=== PATIENT | female | born 1935 | race Caucasian/White ===

== ENCOUNTER → 2018-11-25 | Outpatient (CLI) | payer MEDICARE ==
[~2018-11-25] MED LIST: CYCLOBENZAPRINE10 MG PO; NORCO 5-325 TA1 EACH PO; PREDNISONE20 M1 PO; SIMVASTATIN20 MG PO; Synthroid,Levo50 MCG PO; [UNRECOGNIZED DRUG - OTHER]
[2018-11-25 10:02] LABS: BASO % 0.2 % (0.0-1.0); HEMATOCRIT 39.3 % (37.0-47.0); HEMOGLOBIN 12.5 g/dl (12.0-16.0); LYMPH # 1.5 10*3/uL (1.3-4.4); LYMPH % 31.9 % (27.0-41.0); MEAN CELL VOLUME 93.6 fl (81.0-99.0); MEAN CORPUSCULAR HGB 29.8 pg (27.0-31.0); MEAN CORPUSCULAR HGB CONC 31.8 g/dl (33.0-37.0); MEAN PLATELET VOLUME 11.4 fl (9.6-12.3); MONO # 0.5 10*3/uL (0.1-1.0); MONO % 10.1 % (3.0-9.0); NEUT # 2.7 10*3/uL (2.3-7.9); NEUT % 57.6 % (47.0-73.0); PLATELET COUNT AUTOMATED 229 10*3/uL (130-400); RED CELL DISTRI WIDTH 13.3 % (0-14.5); WHITE BLOOD COUNT 4.7 10*3/uL (4.8-10.8)
[2018-11-25 10:21] LABS: ALBUMIN 3.6 gm/dl (3.1-4.5); BUN 12 mg/dl (7-24); CHLORIDE 109 mmol/L (98-107); SODIUM 144 mmol/L (136-145)
[2018-11-25 10:29] LABS: ALKALINE PHOSPHATASE 100 U/L (45-117); CHOLESTEROL 207 mg/dL (<200); CREATININE 0.98 mg/dL (0.55-1.02); FREE T4 1.01 ng/dl (0.76-1.46); HDL CHOLESTEROL 50 mg/dl (40-60); LDL CHOLESTEROL 116 mg/dL (9-159); SGOT/AST 14 IU/L (3-35); SGPT/ALT 18 U/L (12-78); TOTAL PROTEIN 7.4 gm/dL (6.4-8.2); TRIGLYCERIDES 207 mg/dl (<150); VLDL CHOLESTEROL 41 mg/dL (6-40)
[2018-11-25 11:31] LABS: VITAMIN D, 25-HYDROXY 24.8 ng/mL (30-100)
== END | disposition home or self-care (01) ==
LOC: LAB 09:33
PROVIDERS: Internal Medicine
DX: Z13.220 Encounter for screening for lipoid disorders (principal); Z13.1 Encounter for screening for diabetes mellitus; I10 Essential (primary) hypertension; D52.9 Folate deficiency anemia, unspecified; D51.9 Vitamin B12 deficiency anemia, unspecified; E03.9 Hypothyroidism, unspecified; E55.9 Vitamin D deficiency, unspecified

== ENCOUNTER → 2019-03-02 | Outpatient (CLI) | payer MEDICARE ==
[2019-03-02 10:33] LABS: LYMPH # 1.9 10*3/uL (1.3-4.4); LYMPH % 38.5 % (27.0-41.0); MEAN CELL VOLUME 94.8 fl (81.0-99.0); MEAN CORPUSCULAR HGB 29.9 pg (27.0-31.0); MEAN CORPUSCULAR HGB CONC 31.6 g/dl (33.0-37.0); MEAN PLATELET VOLUME 12.6 fl (9.6-12.3); MONO # 0.5 10*3/uL (0.1-1.0); MONO % 10.9 % (3.0-9.0); NEUT # 2.5 10*3/uL (2.3-7.9); NEUT % 50.4 % (47.0-73.0); PLATELET COUNT AUTOMATED 184 10*3/uL (130-400); RED BLOOD COUNT 4.01 10*6/uL (4.10-5.10); RED CELL DISTRI WIDTH 13.4 % (0-14.5)
[2019-03-02 10:55] LABS: CHOLESTEROL 223 mg/dL (<200); HDL CHOLESTEROL 53 mg/dl (40-60); LDL CHOLESTEROL 141 mg/dL (9-159); TRIGLYCERIDES 147 mg/dl (<150); VLDL CHOLESTEROL 29 mg/dL (6-40)
== END | disposition home or self-care (01) ==
LOC: LAB 09:25
PROVIDERS: Internal Medicine
DX: E78.2 Mixed hyperlipidemia (principal); R53.81 Other malaise

== ENCOUNTER → 2019-10-12 | Outpatient (CLI) | payer MEDICARE ==
[2019-10-12 10:07] LABS: BASO % 0.1 % (0.0-1.0); HEMATOCRIT 37.1 % (37.0-47.0); HEMOGLOBIN 11.8 g/dl (12.0-16.0); LYMPH # 1.7 10*3/uL (1.3-4.4); LYMPH % 24.2 % (27.0-41.0); MEAN CELL VOLUME 97.4 fl (81.0-99.0); MEAN CORPUSCULAR HGB CONC 31.8 g/dl (33.0-37.0); MEAN PLATELET VOLUME 11.9 fl (9.6-12.3); MONO # 0.6 10*3/uL (0.1-1.0); MONO % 8.7 % (3.0-9.0); NEUT # 4.8 10*3/uL (2.3-7.9); NEUT % 66.7 % (47.0-73.0); PLATELET COUNT AUTOMATED 228 10*3/uL (130-400); RED BLOOD COUNT 3.81 10*6/uL (4.10-5.10); RED CELL DISTRI WIDTH 13.4 % (0-14.5); WHITE BLOOD COUNT 7.1 10*3/uL (4.8-10.8)
[2019-10-12 10:45] LABS: ALBUMIN 3.6 gm/dl (3.1-4.5); CHLORIDE 110 mmol/L (98-107); POTASSIUM 3.6 mmol/L (3.5-5.1); SODIUM 143 mmol/L (136-145)
[2019-10-12 10:56] LABS: ALKALINE PHOSPHATASE 93 U/L (45-117); BUN 15 mg/dl (7-24); CHOLESTEROL 205 mg/dL (<200); CREATININE 1.02 mg/dL (0.55-1.02); FREE T4 1.12 ng/dl (0.76-1.46); HDL CHOLESTEROL 54 mg/dl (40-60); LDL CHOLESTEROL 123 mg/dL (9-159); SGOT/AST 22 IU/L (3-35); SGPT/ALT 29 U/L (12-78); TRIGLYCERIDES 141 mg/dl (<150); VLDL CHOLESTEROL 28 mg/dL (6-40)
[2019-10-12 12:41] LABS: VITAMIN D, 25-HYDROXY 29.4 ng/mL (30-100)
== END | disposition home or self-care (01) ==
LOC: US 09:42
PROVIDERS: Internal Medicine
DX: S80.12XA Contusion of left lower leg, initial encounter (principal); I10 Essential (primary) hypertension; R60.0 Localized edema; E03.9 Hypothyroidism, unspecified; E78.2 Mixed hyperlipidemia; E55.9 Vitamin D deficiency, unspecified; Z00.00 Encounter for general adult medical examination without abnormal findings; X58.XXXA Exposure to other specified factors, initial encounter; Y93.89 Activity, other specified; Y92.89 Other specified places as the place of occurrence of the external cause; Y99.8 Other external cause status

== ENCOUNTER 2020-08-16 15:33 | Emergency (ER) | payer MEDICARE ==
[~2020-08-16] VITALS: Ht 157.4 cm; Wt 70.3 kg
[2020-08-16 16:57] LABS: HEMATOCRIT 32.8 % (37.0-47.0); LYMPH % 8.2 % (27.0-41.0); MEAN CELL VOLUME 89.1 fl (81.0-99.0); MEAN CORPUSCULAR HGB 29.1 pg (27.0-31.0); MEAN CORPUSCULAR HGB CONC 32.6 g/dl (33.0-37.0); MEAN PLATELET VOLUME 12.5 fl (9.6-12.3); MONO % 8.2 % (3.0-9.0); NEUT # 9.8 10*3/uL (2.3-7.9); NEUT % 83.3 % (47.0-73.0); RED BLOOD COUNT 3.68 10*6/uL (4.10-5.10); RED CELL DISTRI WIDTH 12.5 % (0-14.5); WHITE BLOOD COUNT 11.7 10*3/uL (4.8-10.8)
[2020-08-16 17:06] LABS: INTERNATIONAL NORM RATIO 1.1 (2.0-3.5)
[2020-08-16 17:07] LABS: PLATELET COUNT AUTOMATED 217 10*3/uL (130-400)
[2020-08-16 18:11] LABS: ALBUMIN 2.9 gm/dl (3.1-4.5); ALKALINE PHOSPHATASE 80 U/L (45-117); BUN 23 mg/dl (7-24); CHLORIDE 98 mmol/L (98-107); CREATININE 1.46 mg/dL (0.55-1.02); LIPASE 38 U/L (73-393); POTASSIUM 2.8 mmol/L (3.5-5.1); SGOT/AST 14 IU/L (3-35); SGPT/ALT 14 U/L (12-78); SODIUM 131 mmol/L (136-145); TOTAL PROTEIN 6.4 gm/dL (6.4-8.2)
[2020-08-16 18:30] LABS: TROPONIN I < 0.015 ng/ml (<0.045)
[2020-08-16 21:21] LABS: BACTERIA TRACE; WBC 0-2 wbc/hpf (0-5)
[2020-08-16 21:22] LABS: BILIRUBIN Negative (Negative); BLOOD 1+ (Negative); CLARITY Clear (Clear); COLOR Yellow (Yellow); GLUCOSE Negative (Negative); KETONE Trace (Negative); LEUKO ESTERASE Negative (Negative); NITRITE Negative (Negative); SPECIFIC GRAVITY 1.025 (1.001-1.030); UROBILINOGEN 0.2 E.U./dl (0.0-1.0)
== END 2020-08-16 22:14 | disposition short-term general hospital (02) ==
LOC: ED 15:33
PROVIDERS: Emergency Medicine
DX: I71.3 Abdominal aortic aneurysm, ruptured (principal); K66.1 Hemoperitoneum; Z88.2 Allergy status to sulfonamides; Z79.899 Other long term (current) drug therapy; Z90.49 Acquired absence of other specified parts of digestive tract

== ENCOUNTER 2020-10-20 17:50 | Inpatient (IN) | payer MEDICARE ==
[~2020-10-20] VITALS: Ht 153.6 cm; Wt 62.7 kg
[2020-10-20 17:58] VITALS: BP 194/89
[2020-10-20 18:25] LABS: EOS % 0.3 % (1.0-4.0); HEMATOCRIT 29.9 % (37.0-47.0); LYMPH # 3.2 10*3/uL (1.3-4.4); LYMPH % 43.8 % (27.0-41.0); MEAN CORPUSCULAR HGB 29.6 pg (27.0-31.0); MEAN CORPUSCULAR HGB CONC 31.4 g/dl (33.0-37.0); MEAN PLATELET VOLUME 11.2 fl (9.6-12.3); MONO # 0.7 10*3/uL (0.1-1.0); MONO % 9.2 % (3.0-9.0); NEUT # 3.4 10*3/uL (2.3-7.9); NEUT % 46.6 % (47.0-73.0); PLATELET COUNT AUTOMATED 245 10*3/uL (130-400); RED BLOOD COUNT 3.18 10*6/uL (4.10-5.10); RED CELL DISTRI WIDTH 14.9 % (0-14.5); WHITE BLOOD COUNT 7.4 10*3/uL (4.8-10.8)
[2020-10-20 18:43] LABS: ALBUMIN 3.2 gm/dl (3.1-4.5); CREATININE 1.48 mg/dL (0.55-1.02); POTASSIUM 3.9 mmol/L (3.5-5.1); TOTAL PROTEIN 6.9 gm/dL (6.4-8.2)
[2020-10-20 19:35] VITALS: BP 156/58
[2020-10-20 19:38] VITALS: BP 156/58
[2020-10-20 20:15] VITALS: BP 182/78
[2020-10-20] MEDS ORDERED: LOW DOSE ASPIRI81 M1 PO (21:27)
[2020-10-20] MEDS ORDERED: ESCITALOPRAM OXA5 MG PO (21:27)
[2020-10-20] MEDS ORDERED: ZINC SULFATE220 MG PO (21:28)
[2020-10-20] MEDS ORDERED: PANTOPRAZOLE SO40 MG PO (21:28)
[2020-10-20] MEDS ORDERED: Lopressor25 MG PO (21:28)
[2020-10-20] MEDS ORDERED: VITAMIN B-12100 MCG PO (21:28)
[2020-10-20] MEDS ORDERED: VITAMIN C500 M4 PO (21:28)
[2020-10-20] MEDS ORDERED: VITAMIN D325 MCG PO (21:29)
[2020-10-20] MEDS ORDERED: LEVOTHYROXINE50 MCG PO (21:29)
[2020-10-21] VITALS: BP 165/72
[2020-10-21 06:45] LABS: BASO % 0.2 % (0.0-1.0); EOS % 0.7 % (1.0-4.0); HEMATOCRIT 29.1 % (37.0-47.0); LYMPH # 2.6 10*3/uL (1.3-4.4); LYMPH % 46.6 % (27.0-41.0); MEAN CELL VOLUME 94.8 fl (81.0-99.0); MEAN CORPUSCULAR HGB CONC 30.6 g/dl (33.0-37.0); MEAN PLATELET VOLUME 11.7 fl (9.6-12.3); MONO # 0.7 10*3/uL (0.1-1.0); MONO % 12.1 % (3.0-9.0); NEUT # 2.2 10*3/uL (2.3-7.9); NEUT % 40.2 % (47.0-73.0); PLATELET COUNT AUTOMATED 206 10*3/uL (130-400); RED BLOOD COUNT 3.07 10*6/uL (4.10-5.10); WHITE BLOOD COUNT 5.6 10*3/uL (4.8-10.8)
[2020-10-21 07:02] LABS: BUN 18 mg/dl (7-24); CHLORIDE 111 mmol/L (98-107); POTASSIUM 3.4 mmol/L (3.5-5.1); SODIUM 146 mmol/L (136-145)
[2020-10-21 07:04] LABS: CREATININE 1.03 mg/dL (0.55-1.02)
[2020-10-21 08:00] VITALS: BP 170/64
[2020-10-21 11:59] VITALS: BP 136/84
[2020-10-21 16:00] VITALS: BP 150/77
[2020-10-22] VITALS: BP 153/58
[2020-10-22 06:48] LABS: BASO % 0.2 % (0.0-1.0); EOS % 0.5 % (1.0-4.0); LYMPH # 2.8 10*3/uL (1.3-4.4); LYMPH % 42.6 % (27.0-41.0); MEAN CELL VOLUME 95.8 fl (81.0-99.0); MEAN CORPUSCULAR HGB 29.4 pg (27.0-31.0); MEAN CORPUSCULAR HGB CONC 30.7 g/dl (33.0-37.0); MEAN PLATELET VOLUME 11.8 fl (9.6-12.3); MONO # 0.8 10*3/uL (0.1-1.0); MONO % 12.3 % (3.0-9.0); NEUT # 2.9 10*3/uL (2.3-7.9); NEUT % 44.1 % (47.0-73.0); PLATELET COUNT AUTOMATED 212 10*3/uL (130-400); RED BLOOD COUNT 3.13 10*6/uL (4.10-5.10); RED CELL DISTRI WIDTH 14.9 % (0-14.5); WHITE BLOOD COUNT 6.6 10*3/uL (4.8-10.8)
[2020-10-22 07:24] LABS: CREATININE 1.16 mg/dL (0.55-1.02); POTASSIUM 4.1 mmol/L (3.5-5.1)
[2020-10-22 08:00] VITALS: BP 172/63
[2020-10-22] MEDS ORDERED: LOSARTAN POTASS50 M1 PO (08:29)
[2020-10-22] MEDS ORDERED: ELIQUIS5 M1 PO (08:29)
== END 2020-10-22 10:15 | disposition home health service (06) | DRG 299 ==
LOC: ED 17:50 → EDHOLD 18:43 → 5E 18:43
PROVIDERS: Emergency Medicine; ADMIT Internal Medicine; ATTEND Internal Medicine
DX: I82.451 Acute embolism and thrombosis of right peroneal vein (principal); N17.0 Acute kidney failure with tubular necrosis; N18.31 Chronic kidney disease, stage 3a; E03.9 Hypothyroidism, unspecified; I12.9 Hypertensive chronic kidney disease with stage 1 through stage 4 chronic kidney disease, or unspecified chronic kidney disease; D64.9 Anemia, unspecified; R62.7 Adult failure to thrive; E87.6 Hypokalemia; Z88.2 Allergy status to sulfonamides; Z90.12 Acquired absence of left breast and nipple; Z90.49 Acquired absence of other specified parts of digestive tract; Z90.710 Acquired absence of both cervix and uterus; Z86.16 Personal history of COVID-19; Z68.26 Body mass index [BMI] 26.0-26.9, adult

== ENCOUNTER → 2021-01-27 | Outpatient (CLI) | payer MEDICARE ==
[~2021-01-27] MED LIST changes: +ELIQUIS5 M1 PO; +ESCITALOPRAM OXA5 MG PO; +LEVOTHYROXINE50 MCG PO; +LOSARTAN POTASS50 M1 PO; +LOW DOSE ASPIRI81 M1 PO; +Lopressor25 MG PO; +PANTOPRAZOLE SO40 MG PO; +VITAMIN B-12100 MCG PO; +VITAMIN C500 M4 PO; +VITAMIN D325 MCG PO; +ZINC SULFATE220 MG PO
== END | disposition home or self-care (01) ==
LOC: US 14:15
PROVIDERS: ATTEND Internal Medicine
DX: M71.21 Synovial cyst of popliteal space [Baker], right knee (principal); R22.42 Localized swelling, mass and lump, left lower limb

== ENCOUNTER 2021-03-04 16:07 | Emergency (ER) | payer MEDICARE ==
[~2021-03-04] VITALS: Ht 157.4 cm; Wt 69.4 kg
== END 2021-03-04 17:29 | disposition home or self-care (01) ==
LOC: ED 16:07
DX: I83.891 Varicose veins of right lower extremity with other complications (principal); I10 Essential (primary) hypertension; Z90.49 Acquired absence of other specified parts of digestive tract; Z90.711 Acquired absence of uterus with remaining cervical stump; Z88.2 Allergy status to sulfonamides; Z79.899 Other long term (current) drug therapy; E03.9 Hypothyroidism, unspecified; Z85.3 Personal history of malignant neoplasm of breast; Z98.890 Other specified postprocedural states

== ENCOUNTER 2021-09-11 12:29 | Inpatient (IN) | payer MEDICARE ==
[~2021-09-11] VITALS: Ht 157.5 cm; Wt 65.5 kg
[2021-09-11 12:38] VITALS: BP 208/81
[2021-09-11 13:06] LABS: BASO % 0.2 % (0.0-1.0); LYMPH # 1.9 10*3/uL (1.3-4.4); LYMPH % 31.9 % (27.0-41.0); MEAN CELL VOLUME 94.4 fl (81.0-99.0); MEAN CORPUSCULAR HGB 30.4 pg (27.0-31.0); MEAN CORPUSCULAR HGB CONC 32.2 g/dl (33.0-37.0); MEAN PLATELET VOLUME 11.4 fl (9.6-12.3); MONO # 0.6 10*3/uL (0.1-1.0); MONO % 9.4 % (3.0-9.0); NEUT # 3.4 10*3/uL (2.3-7.9); NEUT % 58.3 % (47.0-73.0); PLATELET COUNT AUTOMATED 177 10*3/uL (130-400); RED BLOOD COUNT 3.39 10*6/uL (4.10-5.10); WHITE BLOOD COUNT 5.9 10*3/uL (4.8-10.8)
[2021-09-11 13:17] LABS: ACT PARTIAL THROMBO TIME 28.3 SECONDS (20.0-32.1); INTERNATIONAL NORM RATIO 1.1 (2.0-3.5)
[2021-09-11 13:21] LABS: ALBUMIN 3.7 gm/dl (3.1-4.5); ALKALINE PHOSPHATASE 107 U/L (45-117); BUN 18 mg/dl (7-24); CHLORIDE 108 mmol/L (98-107); CREATININE 1.31 mg/dL (0.55-1.02); LIPASE 78 U/L (73-393); SGOT/AST 14 IU/L (3-35); SGPT/ALT 15 U/L (12-78); SODIUM 141 mmol/L (136-145); TOTAL PROTEIN 6.8 gm/dL (6.4-8.2)
[2021-09-11 15:38] VITALS: BP 204/75
[2021-09-11] MEDS ORDERED: VITAMIN C100 M3 PO (17:13)
[2021-09-11] MEDS ORDERED: LOSARTAN POTASS25 M1 PO (17:13)
[2021-09-11 17:40] VITALS: BP 193/67
[2021-09-11] MEDS ORDERED: LASIX40 MG IV (19:30)
[2021-09-11] MEDS ORDERED: Zaroxolyn,Diul2.5 MG PO (19:33)
[2021-09-11 21:14] VITALS: BP 155/56
[2021-09-11 23:42] VITALS: BP 142/61
[2021-09-12] VITALS (9 sets, daily range): BP systolic 119–169; BP diastolic 55–94
[2021-09-12 07:16] LABS: CREATININE 1.31 mg/dL (0.55-1.02); POTASSIUM 3.5 mmol/L (3.5-5.1)
[2021-09-12 07:22] LABS: THYROID STIM HORMONE (HS) 1.61 uIU/ml (0.358-4.75)
[2021-09-12] MEDS ORDERED: ESCITALOPRAM OXA5 MG PO (16:15)
[2021-09-12] MEDS ORDERED: VITAMIN D325 MCG PO (16:16)
[2021-09-12] MEDS ORDERED: PROTONIX40 MG PO (16:16)
[2021-09-13] VITALS: BP 134/73
[2021-09-13 08:00] VITALS: BP 128/72
[2021-09-13] MEDS ORDERED: LOSARTAN POTASS25 M1 PO (08:33)
[2021-09-13] MEDS ORDERED: LEVOTHYROXINE50 MCG PO (08:33)
[2021-09-13] MEDS ORDERED: CEFUROXIME AXE250 MG PO (08:33)
[2021-09-13] MEDS ORDERED: PROTONIX40 MG PO (08:33)
[2021-09-13] MEDS ORDERED: LASIX40 MG PO (08:36)
[2021-09-13] MEDS ORDERED: K-TAB10 MEQ PO (08:36)
[2021-09-13] MEDS ORDERED: Zaroxolyn,Diul2.5 MG PO (08:36)
[2021-09-13 10:13] LABS: CREATININE 2.03 mg/dL (0.55-1.02); POTASSIUM 3.4 mmol/L (3.5-5.1)
== END 2021-09-13 11:12 | disposition home or self-care (01) | DRG 291 ==
LOC: ED 12:29 → EDHOLD 15:40 → 5E 09-12 14:45
PROVIDERS: Emergency Medicine; ADMIT Internal Medicine; ATTEND Internal Medicine
DX: I13.0 Hypertensive heart and chronic kidney disease with heart failure and stage 1 through stage 4 chronic kidney disease, or unspecified chronic kidney disease (principal); I50.31 Acute diastolic (congestive) heart failure; L03.116 Cellulitis of left lower limb; L03.115 Cellulitis of right lower limb; N18.31 Chronic kidney disease, stage 3a; I89.0 Lymphedema, not elsewhere classified; E03.9 Hypothyroidism, unspecified; Z86.718 Personal history of other venous thrombosis and embolism; Z88.2 Allergy status to sulfonamides; Z79.899 Other long term (current) drug therapy; Z90.49 Acquired absence of other specified parts of digestive tract

== ENCOUNTER → 2021-10-09 | Outpatient (CLI) | payer MEDICARE ==
[~2021-10-09] MED LIST changes: +CEFUROXIME AXE250 MG PO; +K-TAB10 MEQ PO; +LASIX40 MG IV; +LASIX40 MG PO; +LOSARTAN POTASS25 M1 PO; +PROTONIX40 MG PO; +VITAMIN C100 M3 PO; +Zaroxolyn,Diul2.5 MG PO
[2021-10-09 14:51] LABS: CREATININE 1.68 mg/dL (0.55-1.02); POTASSIUM 4.3 mmol/L (3.5-5.1)
== END | disposition home or self-care (01) ==
LOC: LAB 13:39
PROVIDERS: ATTEND Internal Medicine
DX: Z79.899 Other long term (current) drug therapy (principal)

== ENCOUNTER → 2022-09-26 | Outpatient (CLI) | payer MEDICARE ==
[2022-09-26 15:11] LABS: HEMATOCRIT 34.2 % (37.0-47.0); LYMPH # 2.1 10*3/uL (1.3-4.4); LYMPH % 33.2 % (27.0-41.0); MEAN CELL VOLUME 97.7 fl (81.0-99.0); MEAN CORPUSCULAR HGB 30.9 pg (27.0-31.0); MEAN CORPUSCULAR HGB CONC 31.6 g/dl (33.0-37.0); MEAN PLATELET VOLUME 11.7 fl (9.6-12.3); MONO # 0.5 10*3/uL (0.1-1.0); MONO % 8.3 % (3.0-9.0); NEUT # 3.7 10*3/uL (2.3-7.9); NEUT % 58.2 % (47.0-73.0); PLATELET COUNT AUTOMATED 196 10*3/uL (130-400); RED CELL DISTRI WIDTH 13.5 % (0-14.5); WHITE BLOOD COUNT 6.4 10*3/uL (4.8-10.8)
[2022-09-26 17:38] LABS: POTASSIUM 4.1 mmol/L (3.4-5.1); TOTAL PROTEIN 6.7 gm/dL (6.0-8.0)
[2022-09-26 21:09] LABS: FREE T4 1.37 ng/dl (0.89-1.76); THYROID STIM HORMONE (HS) 2.408 uIU/ml (0.550-4.780)
[2022-09-26 21:29] LABS: VITAMIN D, 25-HYDROXY 28.2 ng/mL (30-100)
== END | disposition home or self-care (01) ==
LOC: LAB 14:24
PROVIDERS: ATTEND Internal Medicine
DX: I10 Essential (primary) hypertension (principal); E03.9 Hypothyroidism, unspecified; E55.9 Vitamin D deficiency, unspecified; Z13.0 Encounter for screening for diseases of the blood and blood-forming organs and certain disorders involving the immune mechanism; Z13.1 Encounter for screening for diabetes mellitus; Z13.89 Encounter for screening for other disorder; Z13.820 Encounter for screening for osteoporosis